=== PATIENT | male | born 1975 | race Caucasian/White ===

== ENCOUNTER 2020-04-09 20:41 | Emergency (ER) | payer BC ==
[~2020-04-09] VITALS: Ht 188 cm; Wt 120.0 kg
[2020-04-09 20:43] VITALS: BP 146/97
[2020-04-09] MEDS ORDERED: naproxen 500mg tablet PO ONE (21:55)
[2020-04-09] MEDS ORDERED: HYDROcodone/acetaminophen 5mg/325mg tablet PO ONE (21:55)
[2020-04-09] MEDS ORDERED: NAPR-56 PO (21:57)
[2020-04-09] MEDS ORDERED: HYDR-3965 PO (21:57)
== END 2020-04-09 22:43 | disposition home or self-care (01) ==
LOC: ER 20:41
DX: S92.531A Displaced fracture of distal phalanx of right lesser toe(s), initial encounter for closed fracture (principal); S92.421A Displaced fracture of distal phalanx of right great toe, initial encounter for closed fracture; E11.42 Type 2 diabetes mellitus with diabetic polyneuropathy; Z98.890 Other specified postprocedural states; Z88.1 Allergy status to other antibiotic agents; Z79.899 Other long term (current) drug therapy; W10.8XXA Fall (on) (from) other stairs and steps, initial encounter; Y93.89 Activity, other specified; Y92.89 Other specified places as the place of occurrence of the external cause; Y99.8 Other external cause status
CPT/HCPCS: 73660; 99283